=== PATIENT | male | born 1990 | race Two or more races ===

== ENCOUNTER 2024-12-05 10:50 | Outpatient (CLI) | payer BC, SELFPAY | END 2024-12-05 10:51 | disposition home or self-care (01) | PROVIDERS: PCP Family Medicine; Visit Provider Family Medicine | DX: E66.09 Other obesity due to excess calories (principal); Z68.38 Body mass index [BMI] 38.0-38.9, adult | CPT/HCPCS: 80048; 80061; 84443; 85025 ==